=== PATIENT | female | born 1985 | race Caucasian/White ===

== ENCOUNTER 2017-12-27 16:55 | Emergency (ER) | payer OTHER ==
--- NOTE | 2017-12-27 17:58 | PDOC ---
Rapid Medical Evaluation Time Seen by Provider: 12/27/17 17:54 Medical Evaluation: Allergies Allergy/AdvReac Type Severity Reaction Status Date / Time No Known Drug Allergies Allergy Verified 10/31/16 11:00 12/27/17 17:54 I have performed a brief in-person evaluation of this patient. The patient presents with a chief complaint of: , + test monday, some vag bleeding, left pelvic pain radiating to back, LMP november 23 Pertinent physical exam findings: no cvat I have ordered the following: labs, US The patient will proceed to the ED for further evaluation. Discharge Disposition - Diagnosis Vaginal bleeding during - Referrals - Patient Instructions - Post Discharge Activity
[2017-12-27 17:59] VITALS: BMI 23.0
[2017-12-27 19:07] LABS: EOS % 1.6 % (0-4.5); HEMATOCRIT 41.5 % (32.4-45.2); HEMOGLOBIN 13.7 GM/dL (10.7-15.3); LYMPH % 30.2 % (8-40); MCH 29.3 pg (25.7-33.7); MCHC 33.1 g/dl (32.0-36.0); MEAN CELL VOLUME 88.4 fl (80-96); MEAN PLT VOLUME 8.7 fl (7.5-11.1); MONO % 8.9 % (3.8-10.2); NEUT % 58.3 % (42.8-82.8); PLATELET COUNT 273 K/MM3 (134-434); RDW 12.8 % (11.6-15.6); WHITE BLOOD COUNT 8.3 K/mm3 (4.0-10.0)
[2017-12-27 19:44] LABS: URINE APPEARANCE CLEAR; URINE BILIRUBIN NEGATIVE (NEGATIVE); URINE BLOOD 2+ (NEGATIVE); URINE COLOR COLORLESS; URINE GLUCOSE (UA) NEGATIVE (NEGATIVE); URINE KETONE NEGATIVE (NEGATIVE); URINE LEUK ESTERASE NEGATIVE (NEGATIVE); URINE NITRITE NEGATIVE (NEGATIVE); URINE PROTEIN NEGATIVE (NEGATIVE); URINE UROBILINOGEN NEGATIVE mg/dL (0.2-1.0)
[2017-12-27 19:50] LABS: ALBUMIN 3.6 g/dl (3.4-5.0); ANION GAP 8 (8-16); BILIRUBIN,TOTAL 0.4 mg/dL (0.2-1.0); BLOOD UREA NITROGEN 11 mg/dL (7-18); CALCIUM 8.8 mg/dL (8.5-10.1); CHLORIDE 104 mmol/L (98-107); CO2 27 mmol/L (21-32); GLUCOSE,RANDOM 93 mg/dL (74-106); POTASSIUM 3.8 mmol/L (3.5-5.1); SGOT/AST 10 U/L (15-37); SGPT/ALT 16 U/L (12-78); SODIUM 139 mmol/L (136-145); TOT PROT 7.1 g/dl (6.4-8.2)
[2017-12-27 20:06] LABS: ALK PHOS 70 U/L (45-117)
--- NOTE | 2017-12-27 21:10 | PDOC ---
History of Present Illness - General Chief Complaint: Vaginal Bleeding Stated Complaint: VAGINAL BLEEDING ( ) Time Seen by Provider: 12/27/17 17:54 History Source: Patient - History of Present Illness Initial Comments: 12/27/17 21:37 32F , + test monday, brownish discharge, mild right CVA pain , LMP november 23.(5weeks) No other complains. No nausea/vomiting/diarrhea. 12/27/17 23:05 12/27/17 23:23 Past History - Past Medical History Allergies/Adverse Reactions: Allergies Allergy/AdvReac Type Severity Reaction Status Date / Time No Known Drug Allergies Allergy Verified 12/27/17 17:54 Home Medications: Ambulatory Orders Acetaminophen with Codeine [Acetaminophen-Cod #3 Tablet] 1 each PO PRN PRN 10/28 COPD: No - Surgical History GI Surgery: Yes - Suicide/Smoking/Psychosocial Hx Smoking History: Never smoked Have you smoked in the past 12 months: No Information on smoking cessation initiated: No Hx Alcohol Use: No Drug/Substance Use Hx: No Substance Use Type: None Review of Systems - Review of Systems Able to Perform ROS?: Yes Is the patient limited Barbadian proficient: Yes Constitutional: No: Symptoms Reported HEENTM: No: Symptoms Reported Respiratory: No: Symptoms reported Cardiac (ROS): No: Symptoms Reported ABD/GI: No: Symptoms Reported : Yes: See HPI Musculoskeletal: No: Symptoms Reported Integumentary: No: Symptoms Reported Neurological: No: Symptoms reported *Physical Exam - Vital Signs Last Vital Signs Temp Pulse Resp BP Pulse Ox 102 H 14 112/71 12/27/17 17:54 12/27/17 17:54 12/27/17 17:54 - Physical Exam General Appearance: Yes: Nourished, Appropriately Dressed. No: Apparent Distress HEENT: positive: EOMI, CÉSAR, Normal ENT Inspection Neck: negative: Tender Respiratory/Chest: positive: Lungs Clear, Normal Breath Sounds. negative: Chest Tender Cardiovascular: positive: Regular Rhythm, Regular Rate, S1, S2 Gastrointestinal/Abdominal: positive: Normal Bowel Sounds, Flat, Soft. negative : Tender Neurologic: positive: flagman II-XII NML intact, Fully Oriented, Alert, Normal Mood/ Affect ED Treatment Course - LABORATORY CBC & Chemistry Diagram: 12/27/17 18:53 12/27/17 18:44 - ADDITIONAL ORDERS Additional order review: Laboratory Results 12/27/17 12/27/17 18:53 18:44 Sodium 139 Potassium 3.8 Chloride 104 Carbon Dioxide 27 Anion Gap 8 BUN 11 Creatinine 1.0 Creat Clearance w eGFR > 60 Random Glucose 93 Calcium 8.8 Total Bilirubin 0.4 AST 10 L ALT 16 Alkaline Phosphatase 70 Total Protein 7.1 Albumin 3.6 Beta HCG, Quant 2743.0 Urine Color Colorless Urine Appearance Clear Urine pH 7.0 Ur Specific Novelty 1.003 Urine Protein Negative Urine Glucose (UA) Negative Urine Ketones Negative Urine Blood 2+ H Urine Nitrite Negative Urine Bilirubin Negative Urine Urobilinogen Negative Ur Leukocyte Esterase Negative 12/27/17 18:53 RBC 4.70 MCV 88.4 MCHC 33.1 RDW 12.8 MPV 8.7 Neutrophils % 58.3 Lymphocytes % 30.2 Monocytes % 8.9 Eosinophils % 1.6 Basophils % 1.0 Medical Decision Making - Medical Decision Making 12/27/17 23:07 Patient 5 weeks , with likelyhood of nephrolithiasis given 2+ blood in urine. Will provide OBGYN referral, tamsulosin and acetaminophen to help with pain *DC/Admit/Observation/Transfer Diagnosis at time of Disposition: Vaginal bleeding during - Discharge Dispostion Disposition: HOME Admit: No - Referrals Referrals: Hailey Cameron MD [Staff Physician] - - Patient Instructions Printed Discharge Instructions: Kidney Stones -- Adult, DI for Vaginal Bleeding During Additional Instructions: Come back to the ER for any new, worsening or concerning symptom. Follow up with your with Dr. Cameron within a week. Print Language: NEPALI - Post Discharge Activity
--- NOTE | 2017-12-27 22:16 | PDOC ---
Attending Attestation - HPI HPI: 12/27/17 22:17 The patient is a 32 year old female, , with no significant past medical history, who presents to the emergency department with brown vaginal discharge and right sided flank pain radiating to her lower back today. The patient reports having a positive at-home test on 11/23/17. The patient denies chest pain, shortness of breath, headache and dizziness. The patient denies fever, chills, nausea, vomit, diarrhea and constipation. The patient denies dysuria, frequency, urgency and hematuria. Allergies: NKDA - Medical Decision Making 12/27/17 22:17 Documentation prepared by Felicia Hawthorne, acting as claim review medical director for Mauricio Vickers DO <Felicia Hawthorne - Last Filed: 12/27/17 22:19> - Resident Resident Name: Davie Brand - ED Attending Attestation I have performed the following: I have examined & evaluated the patient, The case was reviewed & discussed with the resident, I agree w/resident's findings & plan, Exceptions are as noted - Physicial Exam PE: 12/27/17 22:23 Physical Exam General Appearance: Yes: Appropriately Dressed. No: Apparent Distress, Intoxicated HEENT: positive: EOMI, CÉSAR, Normal ENT Inspection, Normal Voice, TMs Normal, Pharynx Normal. negative: Pale Conjunctivae, Photophobia, Scleral Icterus (R), Scleral Icterus (L) Neck: positive: Trachea midline, Normal Thyroid, Supple. negative: Tender, Rigid, Carotid bruit, Stridor, Lymphadenopathy (R), Lymphadenopathy (L), Thyromegaly Respiratory/Chest: positive: Lungs Clear, Normal Breath Sounds. negative: Chest Tender, Respiratory Distress, Accessory Muscle Use, Labored Respiration, RES, Crackles, Rales, Rhonchi, Stridor, Wheezing, Dullness Cardiovascular: positive: Regular Rhythm, Regular Rate, S1, S2. negative: Edema , JVD, Murmur, Bradycardia, Tachycardia Vascular Pulses: Dorsalis-Pedis (R): 2+, Doralis-Pedis (L): 2+ Gastrointestinal/Abdominal: positive: Normal Bowel Sounds, Flat, Soft. negative : Tender, Organomegaly, Pulsatile Mass, Increased Bowel Sounds, Decreased BS, Distended, Guarding, Rebound, Hernia, Hepatomegaly, Spleenomegaly Lymphatic: negative: Adenopathy, Tenderness Musculoskeletal: positive: Normal Inspection. mild left CVA tenderness negative : Decreased Range of Motion Extremity: positive: Normal Capillary Refill, Normal Inspection, Normal Range of Motion, Pelvis Stable. negative: Tender, Pedal Edema, Swelling, Erythema Integumentary: positive: Normal Color, Dry, Warm. negative: Cyanotic, Erythema , Jaundice, Rash Neurologic: positive: ice carver II-XII NML intact, Fully Oriented, Alert, Normal Mood/ Affect, Motor Strength 5/5. negative: EOM Palsy, Facial Droop, Sensory Deficit - Medical Decision Making 12/28/17 19:12 Pt treated and released. <Mauricio Vickers - Last Filed: 12/28/17 19:12>
[2017-12-27] MEDS ORDERED: TAMSULOSIN HCL 0.4 MG CAP.ER.24H (FP) PO ONE (23:01)
[2017-12-27] MEDS ORDERED: ACETAMINOPHEN 500 MG TABLET (FP) PO ONE (23:01)
[2017-12-27 23:12] VITALS: BP 119/72; PULSE 98; TEMP 97.4
[2017-12-27] MEDS ORDERED: ACETAMINOPHEN 325 MG TABLET (FP) ONE (23:14)
[2017-12-27] MEDS ORDERED: TAMSULOSIN HCL 0.4 MG CAP.ER.24H (FP) ONE (23:15)
[2017-12-28 01:36] LABS: EPI CELLS RARE /HPF (FEW); URINE BACTERIA FEW /hpf (NONE SEEN)
== END 2017-12-27 23:12 | disposition home or self-care (01) ==
LOC: JER 16:55
DX: O26.891 Other specified pregnancy related conditions, first trimester (principal); O20.8 Other hemorrhage in early pregnancy; Z3A.01 Less than 8 weeks gestation of pregnancy
CPT/HCPCS: 36415; 76817-TC; 80053; 81003; 81015; 84702; 85025; 86850; 86900; 86901; 87086; 99281-25

== ENCOUNTER 2021-02-18 21:15 | Inpatient (IN) | payer OTHER ==
[2021-02-18] MEDS ORDERED: ELECTROLYTE-148 SOLN 1,000 ML IV SCH (22:30)
[2021-02-18] MEDS ORDERED: BUTORPHANOL TARTRATE 1 MG/ML VIAL IVPUSH ONE (22:51)
[2021-02-18] MEDS ORDERED: PROMETHAZINE HCL 25 MG/1 ML VIAL IVPUSH ONE (22:51)
[2021-02-18] MEDS ORDERED: OXYTOCIN 30 UNITS in 0.9% NS 30 UNIT/500 ML INFUS.BAG IVPB SCH (23:00)
[2021-02-18] MEDS ORDERED: DEXTROSE 5%-LACTATED RINGERS 1,000 ML IV SCH (23:00)
[2021-02-18 23:03] LABS: BASO % 0.4 % (0-2.0); EOS % 0.6 % (0-4.5); HEMATOCRIT 39.6 % (32.4-45.2); HEMOGLOBIN 13.2 GM/dL (10.7-15.3); LYMPH % 23.3 % (8-40); MCH 30.5 pg (25.7-33.7); MCHC 33.5 g/dl (32.0-36.0); MEAN PLT VOLUME 9.6 fl (7.5-11.1); MONO % 9.7 % (3.8-10.2); PLATELET COUNT 194 K/MM3 (134-434); RBC 4.35 M/mm3 (3.60-5.2); RDW 13.6 % (11.6-15.6); WHITE BLOOD COUNT 7.4 K/mm3 (4.0-10.0)
[2021-02-18 23:17] LABS: INR 0.92 (0.83-1.09); PROTHROMBIN TIME (PATIENT) 11.4 SEC (9.7-13.0)
[2021-02-18 23:20] LABS: ACTIVATED PTT 25.5 SECONDS (25.2-36.5)
[2021-02-18 23:21] LABS: POTASSIUM 4.1 mmol/L (3.5-5.1)
[2021-02-18 23:22] LABS: CALCIUM 8.9 mg/dL (8.5-10.1)
[2021-02-18 23:26] LABS: CREATININE 0.6 mg/dL (0.55-1.3)
[2021-02-18 23:27] VITALS: BMI 32.4
[2021-02-18] MEDS ORDERED: BUTORPHANOL TARTRATE 2 MG/ML VIAL ONE (23:55)
[2021-02-18] MEDS ORDERED: PROMETHAZINE HCL 25 MG/1 ML VIAL ONE (23:55)
[2021-02-19] MEDS ORDERED: OXYTOCIN 20 UNITS in 0.9% NS 20 UNIT/1,000 ML INFUS.BAG IV ONE ×2 (03:09→05:45)
[2021-02-19] MEDS ORDERED: OXYTOCIN 30 UNITS in 0.9% NS 30 UNIT/500 ML INFUS.BAG IVPB ONE (03:45)
[2021-02-19] MEDS ORDERED: WITCH HAZEL 50% (TUCKS) 40 PAD/JAR PAD TP PRN (04:46)
[2021-02-19] MEDS ORDERED: METHYLERGONOVINE MALEATE 0.2 MG/1 ML AMP IM PRN (04:46)
[2021-02-19] MEDS ORDERED: BENZOCAINE 20% 57 GM BOTTLE TP PRN (04:46)
[2021-02-19] MEDS ORDERED: BISACODYL 10 MG SUPP.RECT RC PRN (04:46)
[2021-02-19] MEDS ORDERED: BENZOCAINE 28 GM HEMORRHOIDAL OINTMENT TP PRN (04:46)
[2021-02-19] MEDS: IBUPROFEN 600 MG TABLET (FP) PO PRN ×4 (04:50→21:00)
[2021-02-19] MEDS: ACETAMINOPHEN 325 MG TABLET (FP) PO PRN ×4 (04:50→20:59)
[2021-02-19] MEDS ORDERED: OXYTOCIN 20 UNITS in 0.9% NS 20 UNIT/1,000 ML INFUS.BAG IV SCH (05:00)
[2021-02-19 05:35] LABS: CORD BASE EXCESS -3.5 mmol/L (0-2); CORD HCO3 23.5 mmHg (20-29); CORD PCO2 49.1 mmHg (30-78); CORD pH 7.297 (7.14-7.44)
[2021-02-19] MEDS: PRENATAL VITAMINS W/ FOLIC ACID TABLET (FP) PO SCH (09:12)
[2021-02-19] MEDS: FERROUS SO4 325 MG TABLET (FP) PO SCH ×2 (09:12→21:01)
[2021-02-20] MEDS: ACETAMINOPHEN 325 MG TABLET (FP) PO PRN (08:07)
[2021-02-20] MEDS: IBUPROFEN 600 MG TABLET (FP) PO PRN (08:08)
[2021-02-20 09:01] VITALS: BP 113/78; PULSE 83; TEMP 98.6
[2021-02-20 09:56] LABS: BASO % 0.8 % (0-2.0); EOS % 1.3 % (0-4.5); HEMATOCRIT 36.1 % (32.4-45.2); HEMOGLOBIN 12.3 GM/dL (10.7-15.3); LYMPH % 28.9 % (8-40); MCH 31.1 pg (25.7-33.7); MEAN CELL VOLUME 91.4 fl (80-96); MEAN PLT VOLUME 9.3 fl (7.5-11.1); MONO % 7.5 % (3.8-10.2); NEUT % 61.5 % (42.8-82.8); PLATELET COUNT 188 K/MM3 (134-434); RBC 3.95 M/mm3 (3.60-5.2); RDW 13.8 % (11.6-15.6); WHITE BLOOD COUNT 7.1 K/mm3 (4.0-10.0)
[2021-02-20] MEDS: PRENATAL VITAMINS W/ FOLIC ACID TABLET (FP) PO SCH (10:00)
[2021-02-20] MEDS: FERROUS SO4 325 MG TABLET (FP) PO SCH (10:00)
[2021-02-20] MEDS ORDERED: SENNOSIDES/DOCUSATE COMBO (SENNA PLUS) TABLET (UD) PO PRN (22:00)
== END 2021-02-20 14:35 | disposition home or self-care (01) | DRG 560 ==
LOC: JLDR 21:15 → J3W 02-19 08:22
PROVIDERS: ADMIT Obstetrics & Gynecology; ATTEND Obstetrics & Gynecology
PROC: 10907ZC Drainage of Amniotic Fluid, Therapeutic from Products of Conception, Via Natural or Artificial Opening (ICD-10-PCS; 2021-02-18)
PROC: 10E0XZZ Delivery of Products of Conception, External Approach (ICD-10-PCS; principal; 2021-02-19)
DX: O48.0 Post-term pregnancy (principal); Z3A.40 40 weeks gestation of pregnancy; Z37.0 Single live birth
CPT/HCPCS: 36415; 36600; 59409; 80048; 82803; 85025; 85610; 85730; 86780; 86850; 86900; 86901; C9803; U0003; U0005